=== PATIENT | male | born 1970 | race Caucasian/White ===

== ENCOUNTER 2023-08-23 09:31 | Day surgery (SDC) | payer OTHER ==
[~2023-08-23] VITALS: Ht 185.4 cm; Wt 89.6 kg
[~2023-08-23 09:31] MED LIST: MELATONIN5 M1 PO; PRED20 PO; SERT100 PO; SULFAMETHOXAZO1 EAC1 PO; TRAZ100 PO
[2023-08-23] MEDS ORDERED: NAPR500 PO (09:51)
--- NOTE | 2023-08-23 11:14 | NUR ---
08/23/23 1114 Savannah Prieto TIME OUT COMPLETED AT 1108, 1MG VERSED GIVEN VIA IV PT ON SPO2 MONITOR, SPO2 94%. DR LONG STARTING BLOCK, PT JINNY WELL.
[2023-08-23 11:47] VITALS: BP 147/62
--- NOTE | 2023-08-23 12:33 | NUR ---
08/23/23 1233 Barney Doran IV REMOVED INTACT. SITE WNL.
== END 2023-08-23 12:40 | disposition home or self-care (01) ==
LOC: ORSCSDS 09:31
PROVIDERS: Orthopaedic Surgery
PROC: 01N54ZZ Release Median Nerve, Percutaneous Endoscopic Approach (ICD-10-PCS; principal; 2023-08-23 11:00)
DX: G56.01 Carpal tunnel syndrome, right upper limb (principal); I10 Essential (primary) hypertension; G47.30 Sleep apnea, unspecified; F41.9 Anxiety disorder, unspecified; Z79.899 Other long term (current) drug therapy
CPT/HCPCS: J2250; J7120

== ENCOUNTER 2024-05-03 07:53 | Day surgery (SDC) | payer OTHER ==
[2024-05-03] VITALS (7 sets, daily range): BP systolic 125–132; BP diastolic 79–96
[~2024-05-03] VITALS: Ht 185.4 cm; Wt 87.6 kg
[~2024-05-03 07:53] MED LIST changes: +Lactated Ringer's 1,000 ML IV SCH; +NAPR500 PO
[2024-05-03] MEDS ORDERED: Acetyl L-Carni500 MG PO (08:22)
[2024-05-03] MEDS ORDERED: [UNRECOGNIZED DRUG - OTHER] PO (08:23)
[2024-05-03] MEDS ORDERED: CARBOXYMETHYLCE15 ML BOTHEYES (08:24)
[2024-05-03] MEDS ORDERED: NAPR500 PO (08:25)
[2024-05-03] MEDS ORDERED: MSM500 MG PO (08:25)
[2024-05-03] MEDS ORDERED: SERT100 PO (08:26)
[2024-05-03] MEDS ORDERED: TRAZ50 PO (08:26)
[2024-05-03] MEDS ORDERED: Bupivacaine 0.5% HCl 5 MG/ML 30MLVIAL ONE (09:30)
[2024-05-03] MEDS ORDERED: FentaNYL Citrate 50 MCG/ML 2 ML Injection ONE (09:53)
[2024-05-03] MEDS ORDERED: propofoL 20 ML IV ONE (09:53)
[2024-05-03] MEDS ORDERED: Rocuronium Bromide 10 MG/ML 5ML Injection IV ONE (09:53)
[2024-05-03] MEDS ORDERED: Ondansetron HCl 2 MG / ML 2ML Vial ONE (09:53)
[2024-05-03] MEDS ORDERED: Ketorolac Tromethamine 30mg Vial ONE (09:53)
[2024-05-03] MEDS ORDERED: NS IV ONE (10:10)
[2024-05-03] MEDS ORDERED: FentaNYL Citrate 50 MCG/ML 2 ML Injection IV PRN (10:10)
[2024-05-03] MEDS ORDERED: [UNRECOGNIZED DRUG - OTHER] IV ONE (10:10)
[2024-05-03] MEDS ORDERED: CeFAZolin Sodium 1000 mg Vial ONE (10:10)
[2024-05-03] MEDS ORDERED: Droperidol 5 mg/2 ml Vial IV PRN (10:10)
[2024-05-03] MEDS ORDERED: HYDROmorphone HCl/Pf 1MG SYR IV PRN (10:15)
[2024-05-03] MEDS ORDERED: Albuterol 2.5 MG/3 ML VIAL INH PRN (10:15)
[2024-05-03] MEDS ORDERED: Sugammadex Sodium 200 MG/2ML SDV (100 MG/ML) ONE (10:25)
[2024-05-03] MEDS ORDERED: OxyCODONE 5 mg/Acetamin 325 mg TABLET PO PRN (11:00)
--- NOTE | 2024-05-03 11:41 | NUR ---
DISCHARGE NOTE PT A&OX4, BREATHING RA, NO COMPLAINTS, TOLERATING PO FLUDS. DAD AT BEDSIDE. PT DRESSED INDEPENDENTLY. Patient up to Ambulate independently. Gait steady. Discharge instructions reviewed with patient. Patient verbalizes understanding. Copy given to patient to take home. Dressing to procedure site clean, dry, intact with no visible drainage, swelling, erythema or bruising noted. Discharged via wheelchair to private car for ride home.
== END 2024-05-03 11:40 | disposition home or self-care (01) ==
LOC: ORSCMMR 07:53 → ORD 10:30 → ORSCMMR 11:40
PROVIDERS: Surgery
PROC: 0JB80ZX Excision of Abdomen Subcutaneous Tissue and Fascia, Open Approach, Diagnostic (ICD-10-PCS; principal; 2024-05-03 09:15)
DX: D17.1 Benign lipomatous neoplasm of skin and subcutaneous tissue of trunk (principal); I10 Essential (primary) hypertension; Z87.891 Personal history of nicotine dependence; G47.33 Obstructive sleep apnea (adult) (pediatric); F41.8 Other specified anxiety disorders; F43.10 Post-traumatic stress disorder, unspecified; M79.7 Fibromyalgia; Z79.899 Other long term (current) drug therapy
CPT/HCPCS: 88304; J0690; J1885; J2405; J2704; J3010; J7120